=== PATIENT | male | born 1985 | race Caucasian/White ===

== ENCOUNTER 2016-05-30 16:50 | Emergency (ER) | payer SELFPAY ==
[~2016-05-30] VITALS: Ht 167.6 cm; Wt 59.0 kg
[~2016-05-30 16:50] MED LIST: ACET-703 PO; IBUP-232 PO; PENI500T PO; ULTR50TA5 PO
[2016-05-30 16:52] VITALS: BP 129/80; PULSE 80; RESP 20; TEMP 98; O2SAT 98
--- NOTE | 2016-05-30 17:10 | PD ---
HPI Chief Complaint: ENT Complaint Time Seen by Provider: 17:10 Travel History International Travel<30 days: No Contact w/Intl Traveler<30days: No Traveled to known affect area: No [facility] Past Medical History Hx Anticoagulant Therapy: No Asthma: Yes (as a child) Cardiovascular Problems: No Chemotherapy: No Cerebrovascular Accident: No Diabetes: No Diminished Hearing: No Respiratory: No Social History Alcohol Use: Yes (rare) Tobacco Use: No Substance Use: No Allergies-Medications (Allergen,Severity, Reaction): Coded Allergies: No Known Allergies (Unverified , 01/24/16) Reported Meds & Prescriptions Reported Meds & Active Scripts Active Ultram (Tramadol HCl) 50 Mg Tab 50 Mg PO Q6H PRN Penicillin V Potassium 500 Mg Tab 500 Mg PO Q6H 7 Days Ibuprofen 600 Mg Tab 600 Mg PO Q6H PRN Reported Tylenol Extra Strength (Acetaminophen) 500 Mg Tab 500 Mg PO Q4-6H PRN Data Data Last Documented VS Vital Signs Date Time Temp Pulse Resp B/P Pulse Ox O2 Delivery O2 Flow Rate FiO2 05/30/16 16:52 98.0 80 20 129/80 98 Room Air Miri Acuña May 30, 2016 17:10
--- NOTE | 2016-05-30 17:26 | PD ---
HPI Chief Complaint: ENT Complaint Time Seen by Provider: 17:22 Travel History International Travel<30 days: No Contact w/Intl Traveler<30days: No Traveled to known affect area: No History of Present Illness HPI 31-year-old male with no significant medical history presents to the emergency department for evaluation of a "blowing sensation" in his ear. Patient states it is exacerbated by movement. It has been ongoing for the last couple of weeks. He reports no pain. No recent illnesses, fever, or chills. No trauma to his ear. No alterations in hearing. No headaches, dizziness, lightheaded sensation. He states he does not have any allergies. Denies any aspirin intake. He has no other symptoms to report. History Past Medical Histgory Medical History: Denies Significant Hx Hx Chemotherapy: No Social History Alcohol Use: Yes (rare) Tobacco Use: No Allergies-Medications (Allergen,Severity, Reaction): Coded Allergies: No Known Allergies (Unverified , 01/24/16) Reported Meds & Prescriptions Reported Meds & Active Scripts Active Ultram (Tramadol HCl) 50 Mg Tab 50 Mg PO Q6H PRN Penicillin V Potassium 500 Mg Tab 500 Mg PO Q6H 7 Days Ibuprofen 600 Mg Tab 600 Mg PO Q6H PRN Reported Tylenol Extra Strength (Acetaminophen) 500 Mg Tab 500 Mg PO Q4-6H PRN Review of Systems Except as stated in HPI: all other systems reviewed are Neg Physical Exam Narrative GENERAL: Well-nourished, well-developed patient, ambulatory with a nonantalgic gait in no acute distress SKIN: Warm and dry. HEAD: Normocephalic. Atraumatic EARS: Bilateral pinnae and external canals appear within normal limits. Bilateral tympanic membranes without erythema, dullness or perforation. There are bilateral serous effusions. EYES: No scleral icterus. No injection or drainage. ENT: Mucosa pink and moist. No erythema or exudates. No uvular edema. No uvular , palatal, or tonsillar deviation. Airway patent. Nasal turbinates appear inflamed without nasal blood, purulent drainage or septal hematoma. NECK: Supple, trachea midline. No JVD or lymphadenopathy. CARDIOVASCULAR: Regular rate and rhythm without murmurs, gallops, or rubs. RESPIRATORY: Breath sounds equal bilaterally. No accessory muscle use. MUSCULOSKELETAL: No cyanosis, or edema. BACK: Nontender without obvious deformity. No CVA tenderness. Data Data Last Documented VS Vital Signs Date Time Temp Pulse Resp B/P Pulse Ox O2 Delivery O2 Flow Rate FiO2 05/30/16 16:52 98.0 80 20 129/80 98 Room Air MDM Medical Screen Exam Complete: Yes Emergency Medical Condition: No Differential Diagnosis Allergies, serous effusions Narrative Course 31-year-old male presents to the evaluation for blowing sensation in his ear. Patient does have bilateral serous effusions. I have encouraged him take over- the-counter antihistamine. He is otherwise asymptomatic. He'll be discharged. At this time there are no urgent or emergent needs for medical intervention identified. A medical screening exam was performed: At the time of evaluation the presenting medical condition was determined not to be of an emergent nature. The patient was given the option of receiving additional care, but declined. Patient was given options for additional community resources from which to obtain care. The Patient Has Been advised to seek medical attention for their presenting complaint. The patient has been advised to return to the ER at any time if an emergent condition develops. Primary Impression: Chronic otitis media with serous effusion Qualified Code: H65.23 - Bilateral chronic serous otitis media Additional Impression: Encounter for medical screening examination Condition: Stable DomenicoYajairaMirieloisa MUNGUIA May 30, 2016 17:26
== END 2016-05-30 17:24 | disposition left against medical advice (07) ==
LOC: NEPB 16:50
DX: H65.23 Chronic serous otitis media, bilateral (principal)
CPT/HCPCS: 99281

== ENCOUNTER 2016-09-06 11:32 | Emergency (ER) | payer SELFPAY ==
[~2016-09-06] VITALS: Ht 167.6 cm; Wt 55.0 kg
[2016-09-06 11:36] VITALS: BP 154/84; PULSE 97; RESP 18; TEMP 98.6; O2SAT 98
--- NOTE | 2016-09-06 11:45 | PD ---
Physical Exam Time Seen by Provider: 11:44 Narrative 31yo M c/o R sided facial swelling that he woke up with this morning. Denies pain, fever, vomiting. Patient seen in triage. VS reviewed. Awaiting bed placement. Data Data Last Documented VS Vital Signs Date Time Temp Pulse Resp B/P Pulse Ox O2 Delivery O2 Flow Rate FiO2 09/06/16 11:36 98.6 97 18 154/84 98 Room Air [facility] Supervised Visit with CATARINO: Sonia Celeste Sep 06, 2016 11:45
--- NOTE | 2016-09-06 12:58 | PD ---
HPI . right sided facial swelling since this morning Chief Complaint: Facial Pain or Swelling Time Seen by Provider: 12:50 Travel History International Travel<30 days: No Contact w/Intl Traveler<30days: No Traveled to known affect area: No History of Present Illness HPI 31-year-old male with history of poor dentition here with complaints of right sided facial swelling since this morning. Patient reports a history of dentalgia and issues with his teeth, however he is unable to afford dental care. He tells me that he knows that he has very bad gingivitis and that it is starting to flare-up. He reports right sided facial swelling since this morning. Patient is requesting some penicillin until he is able to get in with the dentist. He denies any fever or chills. He has no other complaints. PFSH Past Medical History Hx Anticoagulant Therapy: No Asthma: Yes (as a child) Anxiety: Yes Cardiovascular Problems: No Chemotherapy: No Cerebrovascular Accident: No Diabetes: No Diminished Hearing: No Psychiatric: Yes (patient states panic attacks) Respiratory: No Tetanus Vaccination: Unknown Past Surgical History Surgical History: No Previous Surgery Social History Alcohol Use: Yes (rare) Tobacco Use: No Substance Use: No Allergies-Medications (Allergen,Severity, Reaction): Coded Allergies: No Known Allergies (Unverified , 09/06/16) Reported Meds & Prescriptions Reported Meds & Active Scripts Active Chlorhexidine Gluconate (Mouth) Liq (Chlorhexidine Gluconate) 0.12% Soln 15 Ml SWISH-SPIT BID 7 Days Penicillin V Potassium 500 Mg Tab 500 Mg PO BID Review of Systems General / Constitutional: No: Fever Eyes: No: Visual changes HENT: Positive: Gingival Bleeding, Dental Difficulties, No: Headaches Cardiovascular: No: Chest Pain or Discomfort Respiratory: No: Shortness of Breath Gastrointestinal: No: Abdominal Pain Genitourinary: No: Dysuria Musculoskeletal: No: Pain Skin: No Rash Neurologic: No: Weakness Psychiatric: No: Depression Endocrine: No: Polydipsia Hematologic/Lymphatic: No: Easy Bruising Physical Exam Narrative GENERAL: AAO x 3, no acute distress, Well-nourished, well-developed patient. SKIN: Warm and dry. No visible rashes or bruising. HEAD: Normocephalic and atraumatic. EYES: No scleral icterus. No injection or drainage. EOM intact, PERRLA ENT: No nasal drainage noted. Mucous membranes pink. Airway patent. All of the teeth with multiple dental caries, tooth decay, enamel deterioration, + gingival inflammation, + mild right sided facial edema without any definitive fluid collection, drainage, or visible abscess NECK: Supple, trachea midline. No JVD. no lymphadenopathy CARDIOVASCULAR: Regular rate and rhythm without murmurs, gallops, or rubs. RESPIRATORY: Breath sounds equal bilaterally. No accessory muscle use. No rhonchi or rales. GASTROINTESTINAL: Visual inspection normal EXTREMITIES: No cyanosis or edema. BACK: No obvious deformity. No CVA tenderness. NEURO: CN II-12 intact, PSYCH: AAO x 3, normal affect. Data Data Last Documented VS Vital Signs Date Time Temp Pulse Resp B/P Pulse Ox O2 Delivery O2 Flow Rate FiO2 09/06/16 11:36 98.6 97 18 154/84 98 Room Air MDM Medical Decision Making Medical Screen Exam Complete: Yes Emergency Medical Condition: Yes Medical Record Reviewed: Yes Differential Diagnosis Gingivitis, dental caries, dentalgia, less likely oral abscess Narrative Course 31-year-old male here with complaints of right sided facial swelling and gingivitis. Examination has been done and patient does not have a definitive oral abscess. Due to his limitations with dental care, I will go ahead and prescribe him a short course of penicillin. I've explained to him that ultimately he needs to see a dentist as soon as possible, as he will require multiple if not all extractions of his teeth. I provided him with some penicillin and chlorhexidine. He can use [id number] Tylenol or Motrin for pain. Patient verbalized understanding of instructions, questions were answered, and thanked me for their care. I advised them if their condition worsens, please return to the nearest emergency room for further care. Diagnosis Primary Impression: Gingivitis Additional Impression: Dentalgia Patient Instructions: General Instructions Additional Instructions: Please see a dentist as soon as possible. Please return to emergency department if your symptoms return or worsen. Follow up with your primary care provider. Take medications as prescribed. Med/Other Pt SpecificInfo: Prescription(s) given Scripts Chlorhexidine Gluconate (Mouth) Liq 0.12% Soln15 Ml SWISH-SPIT BID 7 Days Ref 0 Prov:Mona Almaraz MD 6/15/17 Penicillin V Potassium 500 Mg [id number] Mg PO BID #20 TAB Ref 0 Prov:Mona Almaraz MD 09/06/16 Disposition: 01 DISCHARGE HOME Condition: Stable Brandi Tripp Sep 06, 2016 12:58
[2016-09-06] MEDS ORDERED: CHLO.12%30 SWISH-SPIT (12:59)
[2016-09-06] MEDS ORDERED: PENI500T PO (12:59)
== END 2016-09-06 13:21 | disposition home or self-care (01) ==
LOC: NEPD 11:32
DX: K05.10 Chronic gingivitis, plaque induced (principal); K08.89 Other specified disorders of teeth and supporting structures
CPT/HCPCS: 99283

== ENCOUNTER 2016-10-22 20:51 | Emergency (ER) | payer SELFPAY ==
[~2016-10-22 20:51] MED LIST changes: -ACET-703 PO; +CHLO.12%30 SWISH-SPIT; -IBUP-232 PO; -ULTR50TA5 PO
[2016-10-22 20:53] VITALS: BP 136/79; PULSE 85; RESP 16; TEMP 99.2; O2SAT 98
[2016-10-23] MEDS ORDERED: CLIN150 PO (11:14)
== END 2016-10-22 23:50 | disposition left against medical advice (07) ==
LOC: NED 20:51
DX: R22.30 Localized swelling, mass and lump, unspecified upper limb (principal); Z53.21 Procedure and treatment not carried out due to patient leaving prior to being seen by health care provider
CPT/HCPCS: 99281

== ENCOUNTER 2016-10-23 10:57 | Emergency (ER) | payer SELFPAY ==
[~2016-10-23] VITALS: Ht 167.6 cm; Wt 59.0 kg
[2016-10-23 10:59] VITALS: BP 128/68; PULSE 96; RESP 18; TEMP 98.7; O2SAT 96
--- NOTE | 2016-10-23 11:09 | PD ---
HPI Chief Complaint: Skin Problem Time Seen by Provider: 11:09 Travel History International Travel<30 days: No Contact w/Intl Traveler<30days: No Traveled to known affect area: No History of Present Illness HPI 31-year-old male presents to the emergency department with small tender erythematous bump under the right axillary area. Patient denies fever, chills, recent injury or cat scratch. Patient states he has similar episode in the groin a couple years ago treated with doxycycline. He states the pain is minimal. He came in early as he is noted to get worse. He has no history of MRSA. He has no known drug allergies. PFSH Past Medical History Hx Anticoagulant Therapy: No Asthma: Yes (as a child) Anxiety: Yes Cardiovascular Problems: No Chemotherapy: No Cerebrovascular Accident: No Diabetes: No Diminished Hearing: No Psychiatric: Yes (patient states panic attacks) Respiratory: No Social History Alcohol Use: Yes (rare) Tobacco Use: No Substance Use: No Allergies-Medications (Allergen,Severity, Reaction): Coded Allergies: No Known Allergies (Unverified , 10/23/16) Reported Meds & Prescriptions Reported Meds & Active Scripts Active Chlorhexidine Gluconate (Mouth) Liq (Chlorhexidine Gluconate) 0.12% Soln 15 Ml SWISH-SPIT BID 7 Days Penicillin V Potassium 500 Mg Tab 500 Mg PO BID Review of Systems Except as stated in HPI: all other systems reviewed are Neg General / Constitutional: No: Fever Eyes: No: Visual changes HENT: No: Headaches Cardiovascular: No: Chest Pain or Discomfort Respiratory: No: Shortness of Breath Gastrointestinal: No: Abdominal Pain Genitourinary: No: Dysuria Musculoskeletal: No: Pain Skin: No Rash Neurologic: No: Weakness Psychiatric: No: Depression Endocrine: No: Polydipsia Hematologic/Lymphatic: No: Easy Bruising Physical Exam Narrative GENERAL: Patient is in no acute distress. SKIN: Warm and dry. Normal color. Normal turgor. Patient has a small less than 0.5 cm erythematous slightly raised bump in the right axilla consistent with ingrown hair/folliculitis versus early abscess. Nothing felt to be drainable at this time. No significant induration, lymphangitis, or pointing. The patient has no open wounds or signs of trauma. HEAD: Atraumatic. Normocephalic. EYES: Pupils equal and round. No scleral icterus. No injection or drainage. ENT: No nasal bleeding or discharge. Mucous membranes pink and moist. Pharynx is clear. Airway is patent. NECK: Trachea midline. Supple and nontender without lymphadenopathy. CARDIOVASCULAR: Regular rate and rhythm. RESPIRATORY: No accessory muscle use. Clear to auscultation. Breath sounds equal bilaterally. MUSCULOSKELETAL: Extremities without clubbing, cyanosis, or edema. No obvious deformities. NEUROLOGICAL: Awake and alert. No obvious cranial nerve deficits. Motor grossly within normal limits. Five out of 5 muscle strength in the arms and legs. Normal speech. PSYCHIATRIC: Appropriate mood and affect; insight and judgment normal. Data Data Last Documented VS Vital Signs Date Time Temp Pulse Resp B/P Pulse Ox O2 Delivery O2 Flow Rate FiO2 10/23/16 10:59 98.7 96 18 128/68 96 Room Air MDM Medical Decision Making Medical Screen Exam Complete: Yes Emergency Medical Condition: Yes Differential Diagnosis Cellulitis. Folliculitis. Possible ingrown hair. Narrative Course Patient is medically stable at time of exam. Patient will be treated with clindamycin 300 mg 3 times a day 10 days. Patient can use hot compresses and ibuprofen as needed. Patient follow-up with local primary care physician as needed. Diagnosis Primary Impression: Cellulitis Qualified Code: L03.111 - Cellulitis of right axilla Referrals: [facility] Patient Instructions: Cellulitis (ED), General Instructions Additional Instructions: Patient will be treated with clindamycin 300 mg 3 times a day 10 days. Patient can use hot compresses and ibuprofen as needed. Patient follow-up with local primary care physician as needed. Scripts Clindamycin (Cleocin)150 Mg [id number] Mg PO Q6H 10 Days Prov:Ameena Longoria MD 10/23/16 Disposition: 01 DISCHARGE HOME Condition: Stable Earl Juarez Oct 23, 2016 11:09
[2016-10-23] MEDS ORDERED: CLIN150 PO (11:14)
== END 2016-10-23 11:41 | disposition home or self-care (01) ==
LOC: NEPK 10:57
DX: L03.111 Cellulitis of right axilla (principal)
CPT/HCPCS: 99283

== ENCOUNTER 2016-10-27 06:55 | Emergency (ER) | payer SELFPAY ==
[~2016-10-27 06:55] MED LIST changes: +CLIN150 PO
--- NOTE | 2016-10-27 07:32 | PD ---
HPI Chief Complaint: Oral / Dental Pain or Problem Time Seen by Provider: 07:32 Travel History International Travel<30 days: No Contact w/Intl Traveler<30days: No Traveled to known affect area: No History of Present Illness HPI 31-year-old male presents the emergency department with left-sided upper jaw pain and swelling with dental drainage from the right upper incisor. Patient states it's been swollen since yesterday and worsening. He denies fever , chills, difficulty swallowing, or pain in the right eye. He was recently treated with clindamycin on October 23, but symptoms continue to worsen. He states penicillins work well for him in the past. He states he's been taking ibuprofen with fairly good control of his discomfort. He has no known drug allergies. PFSH Past Medical History Medical History: Denies Significant Hx Hx Anticoagulant Therapy: No Asthma: Yes (as a child) Anxiety: Yes Cardiovascular Problems: No Chemotherapy: No Cerebrovascular Accident: No Diabetes: No Diminished Hearing: No Psychiatric: Yes (patient states panic attacks) Respiratory: No Past Surgical History Surgical History: No Previous Surgery Social History Alcohol Use: Yes (rare) Tobacco Use: No Substance Use: No Allergies-Medications (Allergen,Severity, Reaction): Coded Allergies: No Known Allergies (Unverified , 10/23/16) Reported Meds & Prescriptions Reported Meds & Active Scripts Active Penicillin V Potassium 500 Mg Tab 500 Mg PO Q6H 10 Days Chlorhexidine Gluconate (Mouth) Liq (Chlorhexidine Gluconate) 0.12% Soln 15 Ml SWISH-SPIT BID 7 Days Review of Systems Except as stated in HPI: all other systems reviewed are Neg General / Constitutional: No: Fever Eyes: No: Visual changes HENT: Positive: Gingival Bleeding, Dental Difficulties, No: Headaches, Vertigo , Lightheadedness, Sore Throat, Rhinitis, Rhinorrhea, Congestion, Nosebleed, Neck Stiffness, Neck Pain, Ear Discharge, Earache Cardiovascular: No: Chest Pain or Discomfort Respiratory: No: Shortness of Breath Gastrointestinal: No: Abdominal Pain Genitourinary: No: Dysuria Musculoskeletal: No: Pain Skin: No Rash Neurologic: No: Weakness Psychiatric: No: Depression Endocrine: No: Polydipsia Hematologic/Lymphatic: No: Easy Bruising Physical Exam Narrative GENERAL: Patient appears in mild distress. SKIN: Warm and dry. Normal color. Normal turgor. HEAD: Atraumatic. Normocephalic. Patient has swelling and tenderness to the right maxillary region consistent with his history. EYES: Pupils equal and round. No scleral icterus. No injection or drainage. ENT: No nasal bleeding or discharge. Mucous membranes pink and moist. Pharynx is clear. Airway is patent. Patient has swelling to the right upper lateral gingiva at the base of the incisor. NECK: Trachea midline. Supple nontender without significant lymphadenopathy.. CARDIOVASCULAR: Regular rate and rhythm. RESPIRATORY: No accessory muscle use. Clear to auscultation. Breath sounds equal bilaterally. MUSCULOSKELETAL: Extremities without clubbing, cyanosis, or edema. No obvious deformities. NEUROLOGICAL: Awake and alert. No obvious cranial nerve deficits. Motor grossly within normal limits. Five out of 5 muscle strength in the arms and legs. Normal speech. PSYCHIATRIC: Appropriate mood and affect; insight and judgment normal. Data Data Last Documented VS Vital Signs Date Time Temp Pulse Resp B/P Pulse Ox O2 Delivery O2 Flow Rate FiO2 10/27/16 07:21 16 [facility] Medical Decision Making Medical Screen Exam Complete: Yes Emergency Medical Condition: Yes Medical Record Reviewed: Yes Differential Diagnosis Dental caries. Dental abscess. Dental pain. Narrative Course Patient appears medically stable. Patient given his first dose of Pen-Vee K 500 mg by mouth. Patient given ibuprofen 800 mg by mouth now. Patient continued on Pen-Vee K 500 mg 4 times a day #40. Patient given prescription for Peridex mouthwash as directed. Patient given a prescription for ibuprofen 600 mg 4 times a day #40. Patient is encouraged to follow with local dentist as soon as possible. Diagnosis Primary Impression: Dental abscess Referrals: Dentist Patient Instructions: Dental Abscess (ED), General Instructions Departure Forms: Work Release Enter return to work date: Oct 28, 2016 Additional Instructions: Patient given his first dose of Pen-Vee K 500 mg by mouth. Patient given ibuprofen 800 mg by mouth now. Patient continued on Pen-Vee K 500 mg 4 times a day #40. Patient given prescription for Peridex mouthwash as directed. Patient given a prescription for ibuprofen 600 mg 4 times a day #40. Patient is encouraged to follow with local dentist as soon as possible. Med/Other Pt SpecificInfo: Prescription(s) given Scripts Penicillin V Potassium 500 Mg [id number] Mg PO Q6H 10 Days Prov:Joel Julien MD 10/27/16 Chlorhexidine Gluconate (Mouth) Liq 0.12% Soln15 Ml SWISH-SPIT BID 7 Days Ref 0 Prov:Joel Julien MD 10/27/16 Disposition: 01 DISCHARGE HOME Condition: Stable Earl Juarez Oct 27, 2016 07:32
[2016-10-27 07:35] VITALS: BP 141/70; PULSE 74; RESP 15; TEMP 98.2; O2SAT 99
[2016-10-27] MEDS ORDERED: CHLO.12%30 SWISH-SPIT (07:39)
[2016-10-27] MEDS ORDERED: PENI500T PO (07:39)
[2016-10-27] MEDS ORDERED: IBUPROFEN 800 MG TAB PO ONE (07:45)
[2016-10-27] MEDS ORDERED: PENICILLIN V POTASSIUM 500 MG TAB PO ONE (07:45)
[2016-10-27] MEDS ORDERED: IBUP-232 PO (07:48)
== END 2016-10-27 07:56 | disposition home or self-care (01) ==
LOC: NEPD 06:55
DX: K04.7 Periapical abscess without sinus (principal); J45.909 Unspecified asthma, uncomplicated; F41.9 Anxiety disorder, unspecified
CPT/HCPCS: 99283

== ENCOUNTER 2016-11-19 15:03 | Emergency (ER) | payer SELFPAY ==
[~2016-11-19 15:03] MED LIST changes: -CLIN150 PO; +IBUP-232 PO
[2016-11-19 15:04] VITALS: BP 149/78; PULSE 98; RESP 15; TEMP 98.2; O2SAT 99
--- NOTE | 2016-11-19 15:13 | PD ---
Physical Exam Date Seen by Provider: Nov 19, 2016 Time Seen by Provider: 15:10 Narrative Pt states he has been having palpitations for the last 2 days. Pt states he feels like his heart is skipping and it feels uncomfortable. Pt denies chest pain. Pt states he had a brief episode of SOB while riding his bike but otherwise he denies any dizziness, nausea. VSS, awaiting bed placement. Data Data Last Documented VS Vital Signs Date Time Temp Pulse Resp B/P (MAP) Pulse Ox O2 Delivery O2 Flow Rate FiO2 11/19/16 15:04 98.2 98 15 149/78 (101) 99 MDM Supervised Visit with CATARINO: Morena Suarez Nov 19, 2016 15:13
--- NOTE | 2016-11-19 15:28 | PD ---
HPI Chief Complaint: Cardiac Complaint Time Seen by Provider: 15:14 Travel History International Travel<30 days: No Contact w/Intl Traveler<30days: No Traveled to known affect area: No History of Present Illness HPI This patient complains of palpitations. He feel like he gets an extra beat at least every minute. No presyncopal symptoms. No chest pain. He feels well. No vomiting or diarrhea or presyncopal symptoms or diuretic use. No alleviating factors. Symptoms severity is mild. Duration is one day. He has no cardiac history PFSH Past Medical History Hx Anticoagulant Therapy: No Asthma: Yes (as a child) Anxiety: Yes Cardiovascular Problems: No Chemotherapy: No Cerebrovascular Accident: No Diabetes: No Diminished Hearing: No Psychiatric: Yes (patient states panic attacks) Respiratory: No Past Surgical History Surgical History: No Previous Surgery Social History Alcohol Use: Yes (rare) Tobacco Use: No Substance Use: No Allergies-Medications (Allergen,Severity, Reaction): Coded Allergies: No Known Allergies (Unverified , 11/19/16) Reported Meds & Prescriptions Reported Meds & Active Scripts Active No Active Prescriptions or Reported Medications Review of Systems General / Constitutional: No: Fever Eyes: No: Visual changes HENT: No: Headaches Cardiovascular: Positive: Palpitations, No: Chest Pain or Discomfort Respiratory: No: Shortness of Breath Gastrointestinal: No: Abdominal Pain Genitourinary: No: Dysuria Musculoskeletal: No: Pain Skin: No Rash Neurologic: No: Weakness Psychiatric: No: Depression Endocrine: No: Polydipsia Hematologic/Lymphatic: No: Easy Bruising Physical Exam Narrative GENERAL: Well-nourished, well-developed patient in no apparent distress. SKIN: Focused skin assessment reveals no rash and nodules. Skin is Warm and dry. HEAD: Atraumatic. Normocephalic. EYES: Pupils equal and round. No scleral icterus. No injection or drainage. ENT: No nasal bleeding or discharge. Mucous membranes pink and moist. NECK: Trachea midline. No JVD. CARDIOVASCULAR: Regular rate and rhythm. No murmur appreciated. RESPIRATORY: No accessory muscle use. Clear to auscultation. Breath sounds equal bilaterally. GASTROINTESTINAL: Abdomen soft, non-tender, nondistended. Hepatic and splenic margins not palpable. MUSCULOSKELETAL: No obvious deformities. No clubbing. No cyanosis. No edema. NEUROLOGICAL: Awake and alert. No obvious cranial nerve deficits. Motor grossly within normal limits. Normal speech. PSYCHIATRIC: Appropriate mood and affect; insight and judgment normal. Data Data Last Documented VS Vital Signs Date Time Temp Pulse Resp B/P (MAP) Pulse Ox O2 Delivery O2 Flow Rate FiO2 11/19/16 15:23 84 18 95 Room Air 11/19/16 15:04 98.2 149/78 (101) Orders Orders Electrocardiogram (11/19/16 ) Vp Purchasing / Telemetry [id number].[id number] (11/19/16 15:23) [facility] Medical Decision Making Medical Screen Exam Complete: Yes Emergency Medical Condition: Yes Medical Record Reviewed: Yes Differential Diagnosis Palpitations, cardiac arrhythmia, anxiety Narrative Course I have reviewed the patient's electronic medical record. He has been here multiple times for dental infections Patient's having some palpitations but presentation is mild and benign He has normal vital signs Extended cardiac monitoring reveals sinus rhythm at 84 with no ectopy or PVCs or PACs I reviewed his EKG which shows sinus rhythm without ectopy He has no reason to suspect his electrolytes are significantly out of whack. He takes no diuretics and has had no vomiting or diarrhea and is euvolemic. I observed him for a while and he is basically asymptomatic. Stable for outpatient follow-up Diagnosis Primary Impression: Palpitations Additional Instructions: The patient was advised to follow up with their physician and return if they worsen. Med/Other Pt SpecificInfo: Other Scripts No Active Prescriptions or Reported Meds Disposition: 01 DISCHARGE HOME Condition: Stable Fili Acosta MD Nov 19, 2016 15:28
--- NOTE | 2016-11-20 13:20 | EKG ---
Date Performed: 11/19/2016 Time Performed: 15:28:40 PTAGE: 31 years EKG: Sinus rhythm EARLY REPOLARIZATION BORDERLINE ECG PREVIOUS TRACING : 12/27/2011 13.35 Compared to prior tracing no significant change DOCTOR: Lauren Peterson Interpretating Date/Time 11/20/2016 13:18:26
== END 2016-11-19 17:30 | disposition home or self-care (01) ==
LOC: NEPD 15:03
DX: R00.2 Palpitations (principal)
CPT/HCPCS: 93005; 99283

== ENCOUNTER 2017-04-29 10:09 | Emergency (ER) | payer SELFPAY ==
[~2017-04-29] VITALS: Ht 167.6 cm; Wt 62.0 kg
[2017-04-29 10:11] VITALS: BP 127/60; PULSE 87; RESP 16; TEMP 98.8; O2SAT 98
--- NOTE | 2017-04-29 10:50 | PD ---
HPI Chief Complaint: Cardiac Complaint Time Seen by Provider: 10:34 Travel History International Travel<30 days: No Contact w/Intl Traveler<30days: No Traveled to known affect area: No History of Present Illness HPI This is a 32 year old male who presents to the emergency department feeling like his heart is skipping beats. He reports this has been happening for 2 weeks ,intermittent, worse with stress and anxiety, relieved by rest, but he has felt it in the past up to a year ago. Last night during an episode he felt some shortness of breath, dizziness, and some chest discomfort in his lower chest radiating like a band to the left back. He says the palpitations last for several hours and then subside. PFSH Past Medical History Hx Anticoagulant Therapy: No Asthma: Yes (as a child) Anxiety: Yes Cardiovascular Problems: No Chemotherapy: No Cerebrovascular Accident: No Diabetes: No Diminished Hearing: No Psychiatric: Yes (patient states panic attacks) Respiratory: No Social History Alcohol Use: Yes (rare) Tobacco Use: No Substance Use: No Allergies-Medications (Allergen,Severity, Reaction): Coded Allergies: No Known Allergies (Unverified Adverse Reaction, Unknown, 04/29/17) Reported Meds & Prescriptions Reported Meds & Active Scripts Active No Active Prescriptions or Reported Medications Review of Systems Except as stated in HPI: all other systems reviewed are Neg Physical Exam Narrative GENERAL:Well appearing, no acute distress SKIN: Focused skin assessment warm and dry. HEAD: Atraumatic. Normocephalic. EYES: Pupils equal and round. No injection or drainage. ENT: Moist mucous membranes NECK: Trachea midline. CARDIOVASCULAR: Regular rate and rhythm. No murmur appreciated. RESPIRATORY: Clear to auscultation. Breath sounds equal bilaterally. GASTROINTESTINAL: Abdomen soft, non-tender, nondistended. MUSCULOSKELETAL: No obvious deformities. NEUROLOGICAL: Awake and alert. No obvious cranial nerve deficits. Moving all extremities. PSYCHIATRIC: Appropriate mood and affect; insight and judgment normal. Data Data Last Documented VS Vital Signs Date Time Temp Pulse Resp B/P (MAP) Pulse Ox O2 Delivery O2 Flow Rate FiO2 04/29/17 10:11 98.8 87 16 127/60 (82) 98 Orders Orders Electrocardiogram (04/29/17 ) [facility] Medical Decision Making Medical Screen Exam Complete: Yes Emergency Medical Condition: Yes Interpretation(s) EKG: Normal sinus rhythm, benign early repolarization Differential Diagnosis Arrhythmia, PVCs, PACs Narrative Course This is a 32-year-old male who presents to the emergency department with palpitations and an abnormal sensation in his heart feeling like a "thump". This has been going on more in the past 2 weeks but he has had this for over a year. He is otherwise healthy. EKG is reassuring with no evidence of arrhythmia. I think the patient requires follow-up for a Holter monitor. He was given a referral to [facility]. I do not think he requires any additional testing. He will be discharged home. Diagnosis Primary Impression: Palpitations Patient Instructions: General Instructions Additional Instructions: If you develop severe chest pain, shortness of breath, sweating, lightheadedness , dizziness or difficulty breathing return to the emergency department immediately. Followup with your primary care physician in 2-3 days if your symptoms are not resolved. Med/Other Pt SpecificInfo: No Change to Meds Scripts No Active Prescriptions or Reported Meds Disposition: 01 DISCHARGE HOME Condition: Stable Ameena Longoria MD Apr 29, 2017 10:50
--- NOTE | 2017-04-30 16:02 | EKG ---
Date Performed: 04/29/2017 Time Performed: 10:59:48 PTAGE: 32 years EKG: Sinus rhythm EARLY REPOLARIZATION BORDERLINE ECG Since the prior tracing, there has been no significant change PREVIOUS TRACING : 11/19/2016 15.28 DOCTOR: Sourav Balderas Interpretating Date/Time 04/30/2017 16:00:24
== END 2017-04-29 12:18 | disposition home or self-care (01) ==
LOC: NEPD 10:09
DX: R00.2 Palpitations (principal)
CPT/HCPCS: 93005; 99283

== ENCOUNTER 2017-05-01 22:38 | Emergency (ER) | payer SELFPAY ==
[2017-05-01 22:42] VITALS: BP 146/87; PULSE 102; RESP 16; TEMP 98.6; O2SAT 98
== END 2017-05-01 22:50 | disposition left against medical advice (07) ==
LOC: NED 22:38
DX: Z53.21 Procedure and treatment not carried out due to patient leaving prior to being seen by health care provider (principal)
CPT/HCPCS: 99281

== ENCOUNTER 2017-05-03 23:46 | Emergency (ER) | payer SELFPAY ==
[~2017-05-03] VITALS: Ht 167.6 cm; Wt 61.5 kg
[2017-05-03 23:48] VITALS: BP 153/77; PULSE 86; RESP 16; TEMP 98.5; O2SAT 99
[2017-05-04 01:03] LABS: BASOPHIL % 0.6 % (0.0-2.0); EOSINOPHIL # 0.1 TH/MM3 (0-0.4); EOSINOPHIL % 1.7 % (0.0-4.0); HEMATOCRIT 39.6 % (39.0-51.0); HEMOGLOBIN 13.8 GM/DL (13.0-17.0); LYMPH % 32.1 % (9.0-44.0); LYMPHOCYTE # 2.2 TH/MM3 (1.0-4.8); MEAN CELL VOLUME 85.8 FL (80.0-100.0); MEAN CORPUSCULAR HGB CONC 34.9 % (32.0-36.0); MEAN PLATELET VOLUME 6.7 FL (7.0-11.0); MONO % 7.9 % (0.0-8.0); MONOCYTE # 0.5 TH/MM3 (0-0.9); NEUT % 57.7 % (16.0-70.0); PLATELET COUNT 256 TH/MM3 (150-450); RED BLOOD COUNT 4.61 MIL/MM3 (4.50-5.90); RED CELL DISTRIBUTION WIDTH 13.9 % (11.6-17.2); WHITE BLOOD COUNT 6.9 TH/MM3 (4.0-11.0)
[2017-05-04 01:20] LABS: BICARBONATE 28.1 MEQ/L (21.0-32.0); BLOOD UREA NITROGEN 17 MG/DL (7-18); CALCIUM 8.4 MG/DL (8.5-10.1); CHLORIDE 105 MEQ/L (98-107); CREATININE 0.77 MG/DL (0.60-1.30); GLOMERULAR FILTRATION RATE 116 ML/MIN (>89); GLUCOSE,RANDOM 108 MG/DL (74-106); MAGNESIUM 2.1 MG/DL (1.5-2.5); SODIUM (NA) 139 MEQ/L (136-145)
[2017-05-04 01:24] LABS: TROPONIN I LESS THAN 0.02 NG/ML (0.02-0.05)
--- NOTE | 2017-05-04 01:29 | RADRPT ---
EXAM DATE/TIME: 05/04/2017 00:43 [place] COMPARISON: No previous studies available for comparison. INDICATIONS : Chest pain, heart palpitations. MEDICAL HISTORY : None. SURGICAL HISTORY : None. ENCOUNTER: Initial ACUITY: 2 weeks PAIN SCORE: 110 LOCATION: Bilateral chest FINDINGS: A single view of the chest demonstrates the lungs to be symmetrically aerated without evidence of mas s, infiltrate or effusion. The cardiomediastinal contours are unremarkable. Osseous structures are intact. CONCLUSION: No acute disease. Damien Montero MD on May 04, 2017 at 1:27 Board Certified Radiologist. This report was verified electronically.
--- NOTE | 2017-05-04 02:05 | PD ---
HPI Chief Complaint: Chest Pain Time Seen by Provider: 00:31 Travel History International Travel<30 days: No Contact w/Intl Traveler<30days: No Traveled to known affect area: No History of Present Illness HPI 32-year-old male presents to the emergency department complaint of palpitations. Patient has history of recurrent palpitations that usually lasts a short while however this episode of palpitations has been longer lived. Patient reports he has had intermittent palpitations 2 weeks which is atypical for him. Recently he has noted some mild chest discomfort and left shoulder discomfort. Patient does not have family history of premature onset heart disease or arrhythmia. Patient presently denies any history of hypertension dyslipidemia diabetes tobaccoism or known coronary vessel disease. Patient also denies excessive caffeine use or thyroid dysfunction. Patient's had no weight loss. Patient's had no recent febrile illness or night sweats. Patient states he used to be on antianxiety medicine but has been off of this for a while. Patient takes no medications at this time for anxiety. PFSH Past Medical History Narrative Medical Asthma anxiety palpitations; occasional alcohol use; nursing notes reviewed Medical History: Denies Significant Hx Hx Anticoagulant Therapy: No Asthma: Yes (as a child) Anxiety: Yes Cardiovascular Problems: No Chemotherapy: No Cerebrovascular Accident: No Diabetes: No Diminished Hearing: No Psychiatric: Yes (patient states panic attacks) Respiratory: No Tetanus Vaccination: > 5 Years Influenza Vaccination: No Past Surgical History Surgical History: No Previous Surgery Social History Alcohol Use: Yes (rare) Tobacco Use: No Substance Use: No Allergies-Medications (Allergen,Severity, Reaction): Coded Allergies: No Known Allergies (Unverified Adverse Reaction, Unknown, 04/29/17) Reported Meds & Prescriptions Reported Meds & Active Scripts Active No Active Prescriptions or Reported Medications Review of Systems Except as stated in HPI: all other systems reviewed are Neg General / Constitutional: No: Fever, Chills HENT: No: Congestion Cardiovascular: Positive: Chest Pain or Discomfort, Palpitations, No: Syncope, Dyspnea on exertion, Edema Respiratory: No: Cough, Shortness of Breath, Wheezing Gastrointestinal: No: Nausea, Vomiting, Abdominal Pain Genitourinary: No: Dysuria, Decreased Urinary Output Musculoskeletal: No: Myalgias, Arthralgias, Edema Skin: No Rash Neurologic: No: Weakness Psychiatric: Positive: Anxiety Hematologic/Lymphatic: No: Easy Bruising Physical Exam Narrative GENERAL: Well-developed well-nourished male no acute distress or respiratory distress SKIN: Warm and dry. HEAD: Normocephalic. EYES: No scleral icterus. No injection or drainage. NECK: Supple, trachea midline. No JVD or lymphadenopathy. CARDIOVASCULAR: Regular rate and rhythm without murmurs, gallops, or rubs. RESPIRATORY: Breath sounds equal bilaterally. No accessory muscle use. GASTROINTESTINAL: Abdomen soft, non-tender, nondistended. MUSCULOSKELETAL: No cyanosis, or edema. BACK: Nontender without obvious deformity. No CVA tenderness. Data Data Last Documented VS Vital Signs Date Time Temp Pulse Resp B/P (MAP) Pulse Ox O2 Delivery O2 Flow Rate FiO2 05/04/17 02:29 05/03/17 23:48 98.5 86 16 99 Room Air Orders Orders Electrocardiogram (05/04/17 00:31) Basic Metabolic Panel (Bmp) (05/04/17 00:31) Ckmb (Isoenzyme) Profile (05/04/17 00:31) Complete Blood Count With Diff (05/04/17 00:31) Magnesium (Mg) (05/04/17 00:31) Troponin I (05/04/17 00:31) Chest, Single Ap (05/04/17 00:31) Ecg Monitoring (05/04/17 00:31) Iv Access Insert/Monitor (05/04/17 00:31) Oximetry (05/04/17 00:31) Drug Screen, Random Urine (05/04/17 00:31) CKMB (05/04/17 00:40) CKMB% (05/04/17 00:40) Ed Discharge Order (05/04/17 02:05) Labs Laboratory Tests Test 05/04/17 00:40 05/04/17 00:50 White Blood Count 6.9 TH/MM3 Red Blood Count 4.61 MIL/MM3 Hemoglobin 13.8 GM/DL Hematocrit 39.6 % Mean Corpuscular Volume 85.8 FL Mean Corpuscular Hemoglobin 30.0 PG Mean Corpuscular Hemoglobin Concent 34.9 % Red Cell Distribution Width 13.9 % Platelet Count 256 TH/MM3 Mean Platelet Volume 6.7 FL Neutrophils (%) (Auto) 57.7 % Lymphocytes (%) (Auto) 32.1 % Monocytes (%) (Auto) 7.9 % Eosinophils (%) (Auto) 1.7 % Basophils (%) (Auto) 0.6 % Neutrophils # (Auto) 4.0 TH/MM3 Lymphocytes # (Auto) 2.2 TH/MM3 Monocytes # (Auto) 0.5 TH/MM3 Eosinophils # (Auto) 0.1 TH/MM3 Basophils # (Auto) 0.0 TH/MM3 CBC Comment DIFF FINAL Differential Comment Blood Urea Nitrogen 17 MG/DL Creatinine 0.77 MG/DL Random Glucose 108 MG/DL Calcium Level 8.4 MG/DL Magnesium Level 2.1 MG/DL Sodium Level 139 MEQ/L Potassium Level 3.6 MEQ/L Chloride Level 105 MEQ/L Carbon Dioxide Level 28.1 MEQ/L Anion Gap 6 MEQ/L Estimat Glomerular Filtration Rate 116 ML/MIN Total Creatine Kinase 129 U/L Creatine Kinase MB 1.1 NG/ML Troponin I LESS THAN 0.02 NG/ML Urine Opiates Screen NEG Urine Barbiturates Screen NEG Urine Amphetamines Screen NEG Urine Benzodiazepines Screen NEG Urine Cocaine Screen NEG Urine Cannabinoids Screen NEG MDM Medical Decision Making Medical Screen Exam Complete: Yes Emergency Medical Condition: Yes Medical Record Reviewed: Yes Interpretation(s) EKG: sinus rhythm rate [address] elevation injury pattern or ectopy noted Last Impressions Chest X-Ray 05/04/17 0031 Signed Impressions: Service Date/Time: Thursday, May 04, 2017 00:43 - CONCLUSION: No acute disease. Damien Montero MD CBC & BMP Diagram 05/04/17 00:40 Calcium Level 8.4 L, Magnesium Level 2.1 Troponin I, less than 0.02 not elevated Urine drug screen negative Differential Diagnosis Palpitations, electrolyte disturbance, thyroid dysfunction, arrhythmia, ACS, dehydration, anxiety, pe Narrative Course Patient placed on director of cardiac rehabilitation is inspections of resulting EKG shows sinus rhythm without acute injury pattern Cardiac enzymes are found to be in normal range; patient informed of lab results and stable for outpatient management Chest x-ray reveals no acute abnormality Patient informed of normal range lab results chest x-ray and EKG and is stable for outpatient management. Patient is encouraged to follow-up with his mental health provider regarding his anxiety disorder and anxiety management. Diagnosis Primary Impression: Palpitations Referrals: Primary Care Physician call for appointment Patient Instructions: General Instructions Additional Instructions: Continue to increase fluid hydration Follow-up with your primary care provider Return to the emergency department for any concerns or change in condition May take acetaminophen/Tylenol as needed for fever 100.4F or greater May take ibuprofen/Advil/Motrin every 6-8 hours as needed for discomfort associated with inflammation of fever 100.4F or greater Med/Other Pt SpecificInfo: No Meds Exist/No RX given Scripts No Active Prescriptions or Reported Meds Disposition: 01 DISCHARGE HOME Condition: Stable Juanita Santillan MD May 04, 2017 02:05
--- NOTE | 2017-05-05 00:53 | EKG ---
Date Performed: 05/04/2017 Time Performed: 00:56:32 PTAGE: 32 years EKG: Sinus rhythm WITH OCCASIONAL ECTOPIC PREMATURE COMPLEXES POSSIBLE RIGHT VENTRICULAR CONDUCTION DELAY BORDERLINE E CG PREVIOUS TRACING : 04/29/2017 10.59 Compared to prior tracing, PAC now noted DOCTOR: Keyshawn Wells Interpretating Date/Time 05/05/2017 00:52:23
== END 2017-05-04 02:53 | disposition home or self-care (01) ==
LOC: NEPC 23:46
DX: R00.2 Palpitations (principal); R07.9 Chest pain, unspecified; R94.31 Abnormal electrocardiogram [ECG] [EKG]; F41.9 Anxiety disorder, unspecified; J45.909 Unspecified asthma, uncomplicated
CPT/HCPCS: 71045; 80048; 80307; 82550; 82552; 83735; 84484; 85025; 93005

== ENCOUNTER 2017-05-15 07:21 | Emergency (ER) | payer OTHER ==
[~2017-05-15] VITALS: Ht 167.6 cm; Wt 62.0 kg
[2017-05-15 07:35] VITALS: BP 117/82; PULSE 80; RESP 12; TEMP 98.7; O2SAT 98
--- NOTE | 2017-05-15 07:44 | PD ---
HPI Chief Complaint: Cardiac Complaint Time Seen by Provider: 07:27 Travel History International Travel<30 days: No Contact w/Intl Traveler<30days: No Traveled to known affect area: No History of Present Illness HPI This patient called the paramedics when he woke up and felt like his heart was beating fast and beating hard in his chest. No presyncopal symptoms. He got anxious. He has history of palpitations. He gets spells of them frequently. She's been here 3 or 4 times for the same thing in the last month or 2. He denies any history of diagnosed arrhythmia or cardiac problem. Symptoms severity is moderate. Duration 1 hour. No alleviating factors. Symptoms possibly exacerbated by his anxiety PFSH Past Medical History Hx Anticoagulant Therapy: No Asthma: Yes (as a child) Anxiety: Yes Cardiovascular Problems: No Chemotherapy: No Cerebrovascular Accident: No Diabetes: No Diminished Hearing: No Psychiatric: Yes (patient states panic attacks) Respiratory: No Social History Alcohol Use: Yes (rare) Tobacco Use: No Substance Use: No Allergies-Medications (Allergen,Severity, Reaction): Coded Allergies: No Known Allergies (Unverified Adverse Reaction, Unknown, 05/15/17) Reported Meds & Prescriptions Reported Meds & Active Scripts Active No Active Prescriptions or Reported Medications Review of Systems General / Constitutional: No: Fever Eyes: No: Visual changes HENT: No: Headaches Cardiovascular: Positive: Palpitations, Tachycardia, No: Chest Pain or Discomfort Respiratory: No: Shortness of Breath Gastrointestinal: No: Abdominal Pain Genitourinary: No: Dysuria Musculoskeletal: No: Pain Skin: No Rash Neurologic: No: Weakness Psychiatric: Positive: Anxiety, No: Depression Endocrine: No: Polydipsia Hematologic/Lymphatic: No: Easy Bruising Physical Exam Narrative GENERAL: Well-nourished, well-developed patient in no apparent distress. SKIN: Focused skin assessment reveals no rash and nodules. Skin is Warm and dry. HEAD: Atraumatic. Normocephalic. EYES: Pupils equal and round. No scleral icterus. No injection or drainage. ENT: No nasal bleeding or discharge. Mucous membranes pink and moist. NECK: Trachea midline. No JVD. CARDIOVASCULAR: Regular rate and rhythm. No murmur appreciated. RESPIRATORY: No accessory muscle use. Clear to auscultation. Breath sounds equal bilaterally. GASTROINTESTINAL: Abdomen soft, non-tender, nondistended. Hepatic and splenic margins not palpable. MUSCULOSKELETAL: No obvious deformities. No clubbing. No cyanosis. No edema. NEUROLOGICAL: Awake and alert. No obvious cranial nerve deficits. Motor grossly within normal limits. Normal speech. PSYCHIATRIC: Anxious mood and affect; insight and judgment normal. Data Data Last Documented VS Vital Signs Date Time Temp Pulse Resp B/P (MAP) Pulse Ox O2 Delivery O2 Flow Rate FiO2 05/15/17 07:35 98.7 80 12 117/82 (94) 98 Room Air Orders Orders Iv Access Insert/Monitor (05/15/17 07:34) Electrocardiogram (05/15/17 ) [employer] / Telemetry [id number].[id number] (05/15/17 07:34) Complete Blood Count With Diff (05/15/17 07:34) Basic Metabolic Panel (Bmp) (05/15/17 07:34) Labs Laboratory Tests Test 05/15/17 07:42 White Blood Count 4.6 TH/MM3 Red Blood Count 4.73 MIL/MM3 Hemoglobin 13.9 GM/DL Hematocrit 40.7 % Mean Corpuscular Volume 86.1 FL Mean Corpuscular Hemoglobin 29.4 PG Mean Corpuscular Hemoglobin Concent 34.2 % Red Cell Distribution Width 13.9 % Platelet Count 237 TH/MM3 Mean Platelet Volume 6.5 FL Neutrophils (%) (Auto) 54.3 % Lymphocytes (%) (Auto) 34.2 % Monocytes (%) (Auto) 8.9 % Eosinophils (%) (Auto) 1.9 % Basophils (%) (Auto) 0.7 % Neutrophils # (Auto) 2.5 TH/MM3 Lymphocytes # (Auto) 1.6 TH/MM3 Monocytes # (Auto) 0.4 TH/MM3 Eosinophils # (Auto) 0.1 TH/MM3 Basophils # (Auto) 0.0 TH/MM3 CBC Comment DIFF FINAL Differential Comment Blood Urea Nitrogen 12 MG/DL Creatinine 0.81 MG/DL Random Glucose 87 MG/DL Calcium Level 8.7 MG/DL Sodium Level 140 MEQ/L Potassium Level 3.9 MEQ/L Chloride Level 107 MEQ/L Carbon Dioxide Level 26.9 MEQ/L Anion Gap 6 MEQ/L Estimat Glomerular Filtration Rate 109 ML/MIN MDM Medical Decision Making Medical Screen Exam Complete: Yes Emergency Medical Condition: Yes Medical Record Reviewed: Yes Differential Diagnosis Palpitations, cardiac arrhythmia, anxiety Narrative Course I have reviewed the patient's electronic medical record. Reviewed his last visit from 11 days ago including normal lab studies Patient looks clinically well EKG reveals sinus rhythm with no ectopy Extended cardiac monitoring shows sinus rhythm with occasional ectopic beat CBC is normal Metabolic profile is normal Monitoring for 2 hours and he does not have any dangerous arrhythmias. He is in a sinus rhythm with an occasional PVC Advised to avoid cardiac stimulants such as caffeine and nicotine Sudafed etc. Recommend primary care and/or cardiology follow-up As noted this is his third or fourth visit here for the same thing. Diagnosis Primary Impression: Heart palpitations Additional Impression: PVC's (premature ventricular contractions) Additional Instructions: The patient was advised to follow up with their physician and return if they worsen. Med/Other Pt SpecificInfo: Other Scripts No Active Prescriptions or Reported Meds Disposition: 01 DISCHARGE HOME Condition: Stable Fili Acosta MD May 15, 2017 07:44
[2017-05-15 08:26] LABS: AUTOMATED NEUTROPHIL # 2.5 TH/MM3 (1.8-7.7); BASOPHIL % 0.7 % (0.0-2.0); EOSINOPHIL # 0.1 TH/MM3 (0-0.4); EOSINOPHIL % 1.9 % (0.0-4.0); HEMATOCRIT 40.7 % (39.0-51.0); HEMOGLOBIN 13.9 GM/DL (13.0-17.0); LYMPH % 34.2 % (9.0-44.0); LYMPHOCYTE # 1.6 TH/MM3 (1.0-4.8); MEAN CELL VOLUME 86.1 FL (80.0-100.0); MEAN CORPUSCULAR HEMOGLOBIN 29.4 PG (27.0-34.0); MEAN CORPUSCULAR HGB CONC 34.2 % (32.0-36.0); MEAN PLATELET VOLUME 6.5 FL (7.0-11.0); MONO % 8.9 % (0.0-8.0); MONOCYTE # 0.4 TH/MM3 (0-0.9); NEUT % 54.3 % (16.0-70.0); PLATELET COUNT 237 TH/MM3 (150-450); RED BLOOD COUNT 4.73 MIL/MM3 (4.50-5.90); RED CELL DISTRIBUTION WIDTH 13.9 % (11.6-17.2); WHITE BLOOD COUNT 4.6 TH/MM3 (4.0-11.0)
[2017-05-15 08:44] LABS: BICARBONATE 26.9 MEQ/L (21.0-32.0); CALCIUM 8.7 MG/DL (8.5-10.1); CREATININE 0.81 MG/DL (0.60-1.30)
[2017-05-15 11:32] VITALS: BP 128/85; PULSE 77; RESP 16; O2SAT 100
--- NOTE | 2017-05-15 15:24 | EKG ---
Date Performed: 05/15/2017 Time Performed: 07:42:15 PTAGE: 32 years EKG: Sinus rhythm EARLY REPOLARIZATION BORDERLINE ECG PREVIOUS TRACING : 05/04/2017 00.56 DOCTOR: Efrem Rivero Interpretating Date/Time 05/15/2017 15:22:14
== END 2017-05-15 11:42 | disposition home or self-care (01) ==
LOC: NEPC 07:21
DX: R00.2 Palpitations (principal); I49.3 Ventricular premature depolarization
CPT/HCPCS: 80048; 85025; 93005

== ENCOUNTER 2017-08-17 10:31 | Emergency (ER) | payer SELFPAY ==
[2017-08-17 10:43] VITALS: BP 151/88; PULSE 91; RESP 16; TEMP 98.8; O2SAT 96
[2017-08-17] MEDS ORDERED: DICL75TA PO (11:20)
[2017-08-17] MEDS ORDERED: AMOX875T PO (11:20)
[2017-08-17] MEDS ORDERED: PENI500T PO (11:20)
--- NOTE | 2017-08-17 11:26 | PD ---
HPI Chief Complaint: Oral / Dental Pain or Problem Time Seen by Provider: 11:12 Travel History International Travel<30 days: No Contact w/Intl Traveler<30days: No Traveled to known affect area: No History of Present Illness HPI 32-year-old male the presents to the ED for evaluation of dental pain and swelling. Per patient has had this on the right upper jaw for about 2 days. Per patient one of his kids accidentally bumped him on the face. His been having pain ever since. His concern for wound infection. He has bad teeth in the area. He denies any allergies. States that the pain currently is not bad and is 3 out of 10. Per patient he is to do in that side is sensitive and he knows he needs to have work done. He denies any chest pain or shortness of breath. No fevers chills or sweats. Patient here mainly to get the infection under control. PFSH Past Medical History Hx Anticoagulant Therapy: No Asthma: Yes (as a child) Anxiety: Yes Cardiovascular Problems: No Chemotherapy: No Cerebrovascular Accident: No Diabetes: No Diminished Hearing: No Psychiatric: Yes (patient states panic attacks) Respiratory: No Social History Alcohol Use: No Tobacco Use: No Substance Use: No Allergies-Medications (Allergen,Severity, Reaction): Coded Allergies: No Known Allergies (Unverified Adverse Reaction, Unknown, 05/15/17) Reported Meds & Prescriptions Reported Meds & Active Scripts Active Penicillin V Potassium 500 Mg Tab 500 Mg PO Q6H [address] (Diclofenac Sodium) 75 Mg Tabdr 75 Mg PO BID PRN Amoxicillin 875 Mg Tab 875 Mg PO BID 10 Days Review of Systems Except as stated in HPI: all other systems reviewed are Neg Physical Exam Narrative GENERAL: SKIN: Warm and dry. HEAD: Atraumatic. Normocephalic. EYES: Pupils equal and round. No scleral icterus. No injection or drainage. ENT: No nasal bleeding or discharge. Mucous membranes pink and moist. Tongue is midline. No uvula deviation. Dental: Patient has bad dentition noted throughout the right upper jaw. Multiple cavities noted most of the teeth. Patient has reversible pain on the right upper canine tooth. Some swelling of the gum noted but no obvious purulence or mass. Swelling and tenderness to palpation of the right maxillary area NECK: Trachea midline. No JVD. CARDIOVASCULAR: Regular rate and rhythm. RESPIRATORY: No accessory muscle use. Clear to auscultation. Breath sounds equal bilaterally. GASTROINTESTINAL: Abdomen soft, non-tender, nondistended. Hepatic and splenic margins not palpable. MUSCULOSKELETAL: Extremities without clubbing, cyanosis, or edema. No obvious deformities. NEUROLOGICAL: Awake and alert. No obvious cranial nerve deficits. Motor grossly within normal limits. Five out of 5 muscle strength in the arms and legs. Normal speech. PSYCHIATRIC: Appropriate mood and affect; insight and judgment normal. Data Data Last Documented VS Vital Signs Date Time Temp Pulse Resp B/P (MAP) Pulse Ox O2 Delivery O2 Flow Rate FiO2 08/17/17 10:43 98.8 91 16 151/88 (109) 96 Orders Orders Amoxicillin (Trimox) (08/17/17 11:30) Ed Discharge Order (08/17/17 11:21) [facility] Medical Decision Making Medical Screen Exam Complete: Yes Emergency Medical Condition: Yes Medical Record Reviewed: Yes Differential Diagnosis Dental infection versus dental abscess versus dentalgia Narrative Course 32-year-old male the presents to the ED for evaluation of dental infection. Patient was properly examined and was found to have signs and symptoms consistent appears to be dental infection. Patient will be treated for this with amoxicillin and diclofenac sodium. Patient was told to follow closely with PCP and dentist. Ice or warm compresses. Patient requested penicillin prescription. He was told that amoxicillin and penicillin are in the same class. Not to be used together. He states he would like a prescription to use if he finished the amoxicillin and his infection is not better. He was told to follow-up with dentist. NIGEL worsening symptoms. Diagnosis Primary Impression: Dentalgia Patient Instructions: General Instructions Additional Instructions: Take medications as prescribed. Follow-up with PCP/dentist See ED for any worsening symptoms. Apply ice or heat as needed for pain Med/Other Pt SpecificInfo: Prescription(s) given Scripts Penicillin V Potassium (Penicillin V Potassium) 500 Mg Tab 500 MG PO Q6H for Infection for 10 Days, #40 TAB 0 Refills Prov: Xin Ledbetter DO 08/17/[address] (Diclofenac Sodium DR) 75 Mg Tabdr 75 MG PO BID Y for PAIN SCALE 1 TO 10, #20 TAB 0 Refills Prov: Xin Ledbetter DO 08/17/17 Amoxicillin (Amoxicillin) 875 Mg Tab 875 MG PO BID for Infection for 10 Days, #20 TAB 0 Refills Prov: Xin Ledbetter 08/17/17 Disposition: 01 DISCHARGE HOME Condition: Stable Stephan Bello August 17, 2017 11:26
[2017-08-17] MEDS ORDERED: AMOXICILLIN 875 MG TAB PO ONE (11:30)
== END 2017-08-17 12:03 | disposition home or self-care (01) ==
LOC: NEPC 10:31
DX: K08.89 Other specified disorders of teeth and supporting structures (principal)
CPT/HCPCS: 99283

== ENCOUNTER 2017-08-30 01:07 | Emergency (ER) | payer MEDICAID ==
[~2017-08-30] VITALS: Ht 167.6 cm; Wt 65.0 kg
[~2017-08-30 01:07] MED LIST changes: +AMOX875T PO; -CHLO.12%30 SWISH-SPIT; +DICL75TA PO; -IBUP-232 PO
[2017-08-30 01:09] VITALS: BP 143/88; PULSE 96; RESP 20; TEMP 98.1; TEMP 99.1; O2SAT 99
[2017-08-30] MEDS ORDERED: SODIUM CHLOR 0.9% 1000 ML INJ 1,000 ML IV ONE (01:10)
[2017-08-30] MEDS ORDERED: SODIUM CHLORIDE 0.9% FLUSH 10 ML FLUSH IVF PRN (01:15)
[2017-08-30 01:18] VITALS: O2SAT 98
--- NOTE | 2017-08-30 01:21 | PD ---
HPI Chief Complaint: Cardiac Complaint Time Seen by Provider: 01:10 Travel History International Travel<30 days: No Contact w/Intl Traveler<30days: No Traveled to known affect area: No History of Present Illness HPI 32-year-old male returns to the emergency department by EMS transport for evaluation of palpitations. Patient was identified by EMS to be and a narrow complex tachycardia consistent with SVT rate of approximately 180 bpm. Vagal maneuvers were administered and patient had resolution of symptoms and return to sinus rhythm heart rate 100 bpm and normotensive. Patient states he has been to the hospital at least 4 different times with same symptoms however symptoms have always resolved prior to being evaluated her prior to having an EKG or being placed on a linux kernel developer. Patient does have a history of anxiety and has had increasing anxiety during the of his girlfriend. Patient denies any other medical history other than anxiety. Patient states he occasionally drinks alcohol no longer smokes cigarettes and denies substance use. Patient denies personal history of hypertension dyslipidemia diabetes or known cardiac disease. Patient states he frequently feels skipped beats. Patient does not report any syncope or nursing. Patient does not have any chest pain or shortness of breath sweats nausea vomiting referred neck jaw back shoulder arm pain. Patient is unable to identify exacerbating or alleviating factors. Symptoms this evening began just prior to arrival to the emergency department. Patient takes no prescription medications and takes no over-the- counter medications. No pleuritic chest pain no recent long distance travel surgery or protracted bedrest. PFSH Past Medical History Narrative Medical Asthma anxiety palpitations; occasional alcohol use, prior tobacco use; nursing notes reviewed Hx Anticoagulant Therapy: No Asthma: Yes (as a child) Anxiety: Yes Cardiovascular Problems: No Chemotherapy: No Cerebrovascular Accident: No Diabetes: No Diminished Hearing: No Psychiatric: Yes (patient states panic attacks) Respiratory: No Tetanus Vaccination: Unknown Influenza Vaccination: No Past Surgical History Surgical History: No Previous Surgery Social History Alcohol Use: No (occasional ) Tobacco Use: No Substance Use: No Allergies-Medications (Allergen,Severity, Reaction): Coded Allergies: No Known Allergies (Unverified Adverse Reaction, Unknown, 08/30/17) Reported Meds & Prescriptions Reported Meds & Active Scripts Active Metoprolol Tartrate 25 Mg Tab 12.5 Mg PO DAILY PRN Review of Systems Except as stated in HPI: all other systems reviewed are Neg General / Constitutional: No: Fever HENT: No: Congestion Cardiovascular: Positive: Palpitations, Tachycardia, No: Chest Pain or Discomfort, Diaphoresis, Syncope Respiratory: No: Shortness of Breath Gastrointestinal: No: Abdominal Pain Genitourinary: No: Flank Pain Musculoskeletal: No: Myalgias, Arthralgias Skin: No Rash Neurologic: No: Weakness Psychiatric: Positive: Anxiety Hematologic/Lymphatic: No: Lymph Node Enlargement Physical Exam Narrative GENERAL: Well-developed well-nourished male no acute distress no respiratory distress SKIN: Warm and dry. HEAD: Normocephalic. EYES: No scleral icterus. No injection or drainage. NECK: Supple, trachea midline. No JVD or lymphadenopathy. CARDIOVASCULAR: Regular rate and rhythm without murmurs, gallops, or rubs. RESPIRATORY: Breath sounds equal bilaterally. No accessory muscle use. GASTROINTESTINAL: Abdomen soft, non-tender, nondistended. MUSCULOSKELETAL: No cyanosis, or edema. BACK: Nontender without obvious deformity. No CVA tenderness. Data Data Last Documented VS Vital Signs Date Time Temp Pulse Resp B/P (MAP) Pulse Ox O2 Delivery O2 Flow Rate FiO2 08/30/17 01:18 98 Room Air 08/30/17 01:09 99.1 96 20 Orders Orders Electrocardiogram (08/30/17 01:10) Basic Metabolic Panel (Bmp) (08/30/17 01:10) Complete Blood Count With Diff (08/30/17 01:10) Magnesium (Mg) (08/30/17 01:10) Ckmb (Isoenzyme) Profile (08/30/17 01:10) Troponin I (08/30/17 01:10) Chest, Single Ap (08/30/17 01:10) Ecg Monitoring (08/30/17 01:10) Iv Access Insert/Monitor (08/30/17 01:10) Oximetry (08/30/17 01:10) Sodium Chloride 0.9% Flush (Ns Flush) (08/30/17 01:15) Sodium Chlor 0.9% 1000 Ml Inj (Ns 1000 M (08/30/17 01:10) Thyroid Stimulating Hormone (08/30/17 01:10) Alcohol (Ethanol) (08/30/17 01:10) Drug Screen, Random Urine (08/30/17 01:10) CKMB (08/30/17 01:22) CKMB% (08/30/17 01:22) Labs Laboratory Tests Test 08/30/17 01:22 08/30/17 02:00 White Blood Count 6.5 TH/MM3 Red Blood Count 4.87 MIL/MM3 Hemoglobin 14.2 GM/DL Hematocrit 41.3 % Mean Corpuscular Volume 84.6 FL Mean Corpuscular Hemoglobin 29.2 PG Mean Corpuscular Hemoglobin Concent 34.5 % Red Cell Distribution Width 14.3 % Platelet Count 263 TH/MM3 Mean Platelet Volume 6.9 FL Neutrophils (%) (Auto) 53.6 % Lymphocytes (%) (Auto) 35.2 % Monocytes (%) (Auto) 8.2 % Eosinophils (%) (Auto) 2.4 % Basophils (%) (Auto) 0.6 % Neutrophils # (Auto) 3.5 TH/MM3 Lymphocytes # (Auto) 2.3 TH/MM3 Monocytes # (Auto) 0.5 TH/MM3 Eosinophils # (Auto) 0.2 TH/MM3 Basophils # (Auto) 0.0 TH/MM3 CBC Comment DIFF FINAL Differential Comment Blood Urea Nitrogen 15 MG/DL Creatinine 0.88 MG/DL Random Glucose 110 MG/DL Calcium Level 8.9 MG/DL Magnesium Level 2.0 MG/DL Sodium Level 141 MEQ/L Potassium Level 3.4 MEQ/L Chloride Level 105 MEQ/L Carbon Dioxide Level 25.6 MEQ/L Anion Gap 10 MEQ/L Estimat Glomerular Filtration Rate 99 ML/MIN Total Creatine Kinase 101 U/L Creatine Kinase MB LESS THAN 0.5 NG/ML Troponin I LESS THAN 0.02 NG/ML Thyroid Stimulating Hormone 3rd Gen 1.700 uIU/ML Ethyl Alcohol Level LESS THAN 3 MG/DL Urine Opiates Screen NEG Urine Barbiturates Screen NEG Urine Amphetamines Screen NEG Urine Benzodiazepines Screen NEG Urine Cocaine Screen NEG Urine Cannabinoids Screen NEG MDM Medical Decision Making Medical Screen Exam Complete: Yes Emergency Medical Condition: Yes Medical Record Reviewed: Yes Interpretation(s) EKG sinus rhythm no ectopy patient has J-point elevation consistent with ST elevation of early repolarization; review of medical records multiple EKGs with similar early repolarization changes Troponin I: Less than 0.02, not elevated; CK 101, not elevated TSH 1.700 value normal range UDS: Negative Serum alcohol less than 3, negative not elevated Last Impressions Chest X-Ray 08/30/17 0110 Signed Impressions: CONCLUSION: No active disease. CBC & BMP Diagram 08/30/17 01:22 Calcium Level 8.9, Magnesium Level 2.0 Vital Signs Date Time Temp Pulse Resp B/P (MAP) Pulse Ox O2 Delivery O2 Flow Rate FiO2 08/30/17 01:18 98 Room Air 08/30/17 01:09 99.1 96 20 143/88 (106) 99 Room Air Differential Diagnosis Palpitations SVT arrhythmia electrolyte disturbance thyroid dysfunction substance ingestion ACS FL Narrative Course Patient placed immediately on linux kernel developer IV access obtained with continuous pulse oximetry specimens collected and sent for resulting EKG performed reveals no acute injury pattern change but ST elevation consistent with early repolarization noted on prior EKGs; patient given bolus of normal saline Patient given oral potassium replacement for mild hypokalemia has received 1 L normal saline injury pattern and no delta wave and chest x-ray shows no acute abnormality Patient informed of lab results and diagnostic testing encouraged to follow-up with primary care provider or oil tanker captain as patient may benefit from Holter monitor and echocardiogram patient also provided and as needed prescription for metoprolol to take for palpitations Patient is encouraged to return the emergency department for any concerns or change in condition at this point time patient is stable for outpatient management is aware of his diagnosis and his questions have been answered to his satisfaction. Diagnosis Primary Impression: PSVT (paroxysmal supraventricular tachycardia) Referrals: [facility] 1 day [employer]rop [employer] Or Livestock Farmer call for appointment Primary Care Physician call for appointment Patient Instructions: General Instructions Additional Instructions: Follow-up with primary care provider/[facility] with recommendation for cardiology referral Take medication as prescribed as needed for skipped beats Return to the emergency department for any concerns or change in condition Increase fluid hydration Avoid caffeine or decongestants Add potassium containing foods and beverages to dietary intake Med/Other Pt SpecificInfo: Prescription(s) given Scripts Metoprolol Tartrate (Metoprolol Tartrate) 25 Mg Tab 12.5 MG PO DAILY Y for Regulate Heart Beat, #15 TAB 0 Refills Prov: Juanita Santillan MD 08/30/17 Disposition: 01 DISCHARGE HOME Condition: Stable Juanita Santillan MD Aug 30, 2017 01:21
[2017-08-30 01:41] LABS: AUTOMATED NEUTROPHIL # 3.5 TH/MM3 (1.8-7.7); BASOPHIL % 0.6 % (0.0-2.0); EOSINOPHIL # 0.2 TH/MM3 (0-0.4); EOSINOPHIL % 2.4 % (0.0-4.0); HEMATOCRIT 41.3 % (39.0-51.0); HEMOGLOBIN 14.2 GM/DL (13.0-17.0); LYMPH % 35.2 % (9.0-44.0); LYMPHOCYTE # 2.3 TH/MM3 (1.0-4.8); MEAN CELL VOLUME 84.6 FL (80.0-100.0); MEAN CORPUSCULAR HEMOGLOBIN 29.2 PG (27.0-34.0); MEAN CORPUSCULAR HGB CONC 34.5 % (32.0-36.0); MEAN PLATELET VOLUME 6.9 FL (7.0-11.0); MONO % 8.2 % (0.0-8.0); MONOCYTE # 0.5 TH/MM3 (0-0.9); NEUT % 53.6 % (16.0-70.0); PLATELET COUNT 263 TH/MM3 (150-450); RED BLOOD COUNT 4.87 MIL/MM3 (4.50-5.90); RED CELL DISTRIBUTION WIDTH 14.3 % (11.6-17.2); WHITE BLOOD COUNT 6.5 TH/MM3 (4.0-11.0)
--- NOTE | 2017-08-30 01:44 | RADRPT ---
EXAM DATE: 08/30/2017 1:37 AM EDT AGE/SEX: 32 years / Male INDICATIONS: Palpitations. Chest discomfort. Rapid hear rate. CLINICAL DATA: This is the patient's initial encounter. Patient reports that signs and symptoms have been present for 1 day and indicates a pain score of 2/10. MEDICAL/SURGICAL HISTORY: None. None. COMPARISON: No prior exams available for comparison. FINDINGS: A single AP view of the chest demonstrates the lungs to be symmetrically aerated without evidence of mass, infiltrate or effusion. The cardiomediastinal contours are unremarkable. Osseous structures a re intact. CONCLUSION: No active disease. Electronically signed by: Damien Montero MD 08/30/2017 1:43 AM EDT
[2017-08-30 01:46] LABS: BICARBONATE 25.6 MEQ/L (21.0-32.0); BLOOD UREA NITROGEN 15 MG/DL (7-18); CALCIUM 8.9 MG/DL (8.5-10.1); CHLORIDE 105 MEQ/L (98-107); CREATININE 0.88 MG/DL (0.60-1.30); GLOMERULAR FILTRATION RATE 99 ML/MIN (>89); GLUCOSE,RANDOM 110 MG/DL (74-106); SODIUM (NA) 141 MEQ/L (136-145)
[2017-08-30 01:56] LABS: TROPONIN I LESS THAN 0.02 NG/ML (0.02-0.05)
[2017-08-30] MEDS ORDERED: METO25TA3 PO (03:09)
[2017-08-30] MEDS ORDERED: POTASSIUM CHLORIDE 20 MEQ CONTROLLED RELEASE TAB PO ONE (03:15)
--- NOTE | 2017-08-30 16:00 | EKG ---
Date Performed: 08/30/2017 Time Performed: 01:10:56 PTAGE: 32 years EKG: Sinus rhythm ST ELEVATION, PROBABLY EARLY REPOLARIZATION BORDERLINE ECG Since the PREVIOUS TRACING , no significant change noted PREVIOUS TRACIN05/15/2017 07.42 DOCTOR: Sourav Balderas Interpretating Date/Time 08/30/2017 15:57:07
== END 2017-08-30 03:29 | disposition home or self-care (01) ==
LOC: NEPC 01:07
DX: I47.1 Supraventricular tachycardia (principal); Z87.891 Personal history of nicotine dependence
CPT/HCPCS: 71045; 80048; 80307; 82550; 82552; 83735; 84443; 84484; 85025; 93005; 96360; 99285; J7030